=== PATIENT | female | born 1950 | race Caucasian/White ===

== ENCOUNTER → 2018-09-21 12:00 | Outpatient (CLI) | payer MEDICARE, OTHER, SELFPAY ==
--- NOTE | 2018-09-21 12:03 | DI.MG.S_ITS ---
BILATERAL DIGITAL SCREENING MAMMOGRAM 3D/2D WITH CAD: 09/21/2018 CLINICAL: Routine screening. Comparison is made to exams dated: 08/13/2015 mammogram - [facility], 02/14/2014 mammogram, and 11/01/2012 mammogram - [facility]. The tissue of both breasts is heterogeneously dense. This may lower the sensitivity of mammography. Current study was also evaluated with a Computer Aided Detection (CAD) system. There is a new 0.4 cm oval equal density asymmetry in the right breast posterior depth central to the nipple seen on the craniocaudal view only. No other significant masses, calcifications, or other findings are seen in either breast. IMPRESSION: INCOMPLETE: NEEDS ADDITIONAL IMAGING EVALUATION The new 0.4 cm oval equal density asymmetry in the right breast is indeterminate. Additional views with possible ultrasound are recommended. This exam was interpreted at Station ID: [id number]. NOTE: For mammograms, a report in lay terms will be sent to the patient. Approximately 15% of breast malignancies will not be visualized mammographically. In the management of a palpable breast mass, a negative mammogram must not discourage biopsy of a clinically suspicious lesion. Electronically Signed By: Reggie Forman M.D. aty/:09/21/2018 12:44:40 letter sent: Additional Imaging Needed ACR BI-RADS Category 0: Incomplete 3340F
== END ==
PROVIDERS: PCP Family Medicine; Visit Provider Family Medicine
DX: Z12.31 Encounter for screening mammogram for malignant neoplasm of breast (principal); M85.851 Other specified disorders of bone density and structure, right thigh; M85.852 Other specified disorders of bone density and structure, left thigh; Z78.0 Asymptomatic menopausal state
CPT/HCPCS: 77063; 77067; 77081

== ENCOUNTER → 2018-10-10 12:26 | Outpatient (CLI) | payer MEDICARE, OTHER, SELFPAY ==
--- NOTE | 2018-10-10 | DI.MG.S_ITS ---
UNILATERAL RIGHT DIGITAL DIAGNOSTIC MAMMOGRAM 3D/2D WITH ADDITIONAL VIEWS: 10/10/2018 CLINICAL: Additional evaluation requested from prior study. Comparison is made to exams dated: 09/21/2018 mammogram, 08/13/2015 mammogram - [facility], and 02/14/2014 mammogram - [facility]. The tissue of right breast is heterogeneously dense. This may lower the sensitivity of mammography. Previously identified 0.4 cm oval equal density asymmetry in the right breast posterior depth central to the nipple seen on the craniocaudal view only on comparison screening mammograms of 09/21/18 persists with additional views. Vascular calcifications are noted. A circular mole marker overlies the right breast. IMPRESSION: INCOMPLETE: NEEDS ADDITIONAL IMAGING EVALUATION Previously identified 0.4 cm oval equal density asymmetry in the right breast posterior depth central to the nipple seen on the craniocaudal view only on comparison screening mammograms of 09/21/18 persists with additional views. A targeted ultrasound is recommended for further evaluation, and will be performed immediately following this exam. This exam was interpreted at Station ID: [id number]. NOTE: For mammograms, a report in lay terms will be sent to the patient. Approximately 15% of breast malignancies will not be visualized mammographically. In the management of a palpable breast mass, a negative mammogram must not discourage biopsy of a clinically suspicious lesion. Electronically Signed By: Tan Castaneda M.D. ecl/:10/10/2018 13:21:04 ACR BI-RADS Category 0: Incomplete 3340F
--- NOTE | 2018-10-10 12:28 | DI.US.S_ITS ---
LIMITED ULTRASOUND OF RIGHT BREAST AND AXILLA: 10/10/2018 CLINICAL: Patient returns today to evaluate a focal asymmetry in the right breast. Comparison is made to exams dated: 10/10/2018 mammogram, 09/21/2018 mammogram, 08/13/2015 mammogram - [facility], 02/14/2014 mammogram, 11/01/2012 mammogram, and 10/28/2011 mammogram - [facility]. Color flow, real-time, and Doppler ultrasound of the right breast 6 o'clock, 12 o'clock, retroareolar, and axilla regions were performed. Sepulveda scale images of the real-time examination were reviewed. There is mild diffuse retroareolar ductal ectasia without underlying mass or focal ductal dilitation. There is a 0.5 x 0.2 x 0.6 cm oval circumscribed peripherally hypoechoic and centrally hyperechoic probable intramammary lymph node versus complicated cyst in the right breast at 6:00 position 1 cm from the nipple which demonstrates no vascularity on Doppler imaging. This may correlate with findings seen on comparison mammography. Targeted ultrasound along the 12:00 position demonstrates no mass or abnormality. Targeted ultrasound of the right axilla demonstrates no right axillary lymphadenopathy. IMPRESSION: PROBABLY BENIGN 0.6 x 0.5 x 0.2 cm probable intramammary lymph node versus complicated cyst in the right breast at 6:00 position 1 cm from the nipple. A follow-up mammogram and an ultrasound in 6 months is recommended to demonstrate stability. The patient is advised to monitor her breasts and to return sooner for re-evaluation should she feel anything grow or change. This exam was interpreted at Station ID: [id number]. Electronically Signed By: Tan Castaneda M.D. ecl/:10/10/2018 15:05:58 letter sent: Followup Recommended Ultrasound BI-RADS: 3 Probably benign
== END ==
PROVIDERS: PCP Family Medicine; Visit Provider Family Medicine
DX: R92.8 Other abnormal and inconclusive findings on diagnostic imaging of breast (principal); N64.89 Other specified disorders of breast; N60.41 Mammary duct ectasia of right breast
CPT/HCPCS: 76642; 77065; G0279

== ENCOUNTER → 2019-03-26 13:58 | Outpatient (CLI) | payer MEDICARE, OTHER, SELFPAY ==
--- NOTE | 2019-03-26 14:00 | DI.US.S_ITS ---
PROCEDURE: US PELVIC COMPLETE INDICATIONS: PAIN, FULLNESS POST COMPLETE HYSTERECTOMY 2015 TECHNIQUE: Real-time scanning was performed of the pelvic organs, with image documentation. Additional endovaginal scanning was necessary due to incomplete visualization of the adnexal and endometrial structures by transabdominal scanning. COMPARISON: None. FINDINGS: Transabdominal scanning: Limited scanning through the kidneys shows no hydronephrosis. No pathologic free abdominal or pelvic fluid. Endovaginal scanning: Uterus: Surgically absent. Ovaries: Reportedly surgically absent. No gross adnexal cyst or mass. Incidentally noted bladder post void residual of 206 cc. Kidneys are unremarkable bilaterally IMPRESSION: Status post hysterectomy and oophorectomy. No gross adnexal cysts or mass. Incidentally noted bladder post void residual measuring 206 cc. Recommend clinical correlation Dictated by: Osorio Holguin M.D. on 03/26/2019 at 16:34 Approved by: Osorio Holguin M.D. on 03/26/2019 at 16:35
== END ==
PROVIDERS: PCP Student in an Organized Health Care Education/Training Program; Referring Provider Obstetrics & Gynecology; Visit Provider Obstetrics & Gynecology
DX: R10.2 Pelvic and perineal pain (principal); Z90.710 Acquired absence of both cervix and uterus
CPT/HCPCS: 76830; 76856

== ENCOUNTER → 2019-04-17 12:34 | Outpatient (CLI) | payer MEDICARE, OTHER, SELFPAY ==
--- NOTE | 2019-04-17 12:39 | DI.US.S_ITS ---
LIMITED ULTRASOUND OF RIGHT BREAST: 04/17/2019 CLINICAL: Patient returns for short term follow-up of a probably benign mass in the right breast. Comparison is made to exams dated: 10/10/2018 ultrasound, 10/10/2018 mammogram, and 09/21/2018 mammogram - [facility]. Color flow and real-time ultrasound of the right breast 6 o'clock, 9 o'clock, 12 o'clock, and retroareolar regions were performed. Sepulveda scale images of the real-time examination were reviewed. There is a stable benign 0.5 cm x 0.2 cm x 0.3 cm lymph node in the right breast at 6 o'clock posterior depth 1 cm from the nipple. This correlates with mammography findings. Color flow imaging demonstrates that there is no vascularity present. There also is a benign incidentally noted 0.3 cm x 0.3 cm x 0.3 cm cyst in the right breast at 9 o'clock middle depth 2 cm from the nipple. Color flow imaging demonstrates that there is no vascularity present. IMPRESSION: BENIGN There is no sonographic evidence of malignancy. The stable 0.5 cm x 0.2 cm x 0.3 cm lymph node in the right breast at 6 o'clock posterior depth is benign. The 0.3 cm x 0.3 cm x 0.3 cm cyst in the right breast at 9 o'clock middle depth is benign. Return to annual mammogram screening schedule is recommended. Findings and recommendations were conveyed to the patient at time of exam. This exam was interpreted at Station ID: [id number]. Electronically Signed By: Lizeth miles/:04/17/2019 15:02:50 copy to: PHOEBE MATOS letter sent: Normal Exam Ultrasound BI-RADS: 2 Benign
--- NOTE | 2019-04-17 12:39 | DI.MG.S_ITS ---
UNILATERAL RIGHT DIGITAL DIAGNOSTIC MAMMOGRAM 3D/2D SHORT-TERM FOLLOW-UP: 04/17/2019 CLINICAL: Short follow up. Comparison is made to exams dated: 10/10/2018 mammogram, 09/21/2018 mammogram, and 08/13/2015 mammogram - [facility]. The tissue of right breast is heterogeneously dense. This may lower the sensitivity of mammography. There is a stable 3 mm oval equal density asymmetry with a circumscribed margin in the right breast central to the nipple posterior depth. This is seen in additional views. There also is a 5 mm round equal density asymmetry with a circumscribed margin in the right breast central to the nipple middle depth. This is more prominent compared to previous. No other significant masses or calcifications are seen in the breast. IMPRESSION: INCOMPLETE: NEEDS ADDITIONAL IMAGING EVALUATION The stable 3 mm oval equal density asymmetry in the right breast central to the nipple posterior depth is probably benign. Confirmation with ultrasound is recommended. The 5 mm round equal density asymmetry in the right breast central to the nipple middle depth is indeterminate. An ultrasound is recommended for further evaluation. This was performed immediately following this exam. This exam was interpreted at Station ID: [id number]. NOTE: For mammograms, a report in lay terms will be sent to the patient. Approximately 15% of breast malignancies will not be visualized mammographically. In the management of a palpable breast mass, a negative mammogram must not discourage biopsy of a clinically suspicious lesion. Electronically Signed By: Lizeth miles/:04/17/2019 13:46:31 copy to: PHOEBE OBRIEN BI-RADS Category 0: Incomplete 3340F
== END ==
PROVIDERS: PCP Student in an Organized Health Care Education/Training Program; Referring Provider Student in an Organized Health Care Education/Training Program; Visit Provider Family Medicine
DX: R92.8 Other abnormal and inconclusive findings on diagnostic imaging of breast (principal); N64.89 Other specified disorders of breast; N60.01 Solitary cyst of right breast
CPT/HCPCS: 76642; 77065; G0279

== ENCOUNTER → 2019-05-23 13:50 | Outpatient (CLI) | payer MEDICARE, OTHER, SELFPAY ==
[2019-05-23 15:33] LABS: BUN Creatinine Ratio 23.1 (6-22); Blood Urea Nitrogen 18 mg/dL (7-17); Estimated Glomerular Filt Rate > 60.0 mL/min (>60)
[2019-05-23 16:00] LABS: TSH w/ Reflex to FT4 1.11 uIU/mL (0.47-4.68)
[2019-05-23 16:20] LABS: Vitamin B12 823 pg/mL (239-931)
[2019-05-23 17:14] LABS: Vitamin D 25 Hydroxy (D3) 104 ng/mL (30.0-100.0)
== END ==
PROVIDERS: PCP Student in an Organized Health Care Education/Training Program; Referring Provider Student in an Organized Health Care Education/Training Program; Visit Provider Student in an Organized Health Care Education/Training Program
DX: G62.9 Polyneuropathy, unspecified (principal); Z79.899 Other long term (current) drug therapy; E55.9 Vitamin D deficiency, unspecified; M85.80 Other specified disorders of bone density and structure, unspecified site
CPT/HCPCS: 36415; 82306; 82565; 82607; 84443; 84520

== ENCOUNTER → 2019-05-25 12:35 | Outpatient (CLI) | payer MEDICARE, OTHER, SELFPAY ==
--- NOTE | 2019-05-25 12:37 | DI.CT.S_ITS ---
PROCEDURE: CT LUMBAR SPINE WO CON INDICATIONS: Complex pain syndrome TECHNIQUE: Noncontrast 3 mm thick sections acquired from the T12 level to the sacrum. Sagittal and coronal reformats were constructed. For radiation dose reduction, the following was used: automated exposure control. COMPARISON: [facility], CT, CT ABDOMEN PELVIS WO CON, 05/25/2019, 12:35. FINDINGS: Image quality: Excellent. Bones: There is normal bony alignment. No acute vertebral body compression fractures. No suspicious lytic or blastic bony lesions. No pars defects. There is mild to moderate disc space narrowing at L4-5 and L5-S1. Mild disc bulges are present at L3-4, L4-5 and L5-S1. Disc bulge at L5-S1 is somewhat asymmetric with slight compromise of the left lateral recess. There is no spinal stenosis. Mild to moderate left and minimal right foraminal narrowing at L4-5, mild to moderate bilateral at L5-S1. Facet hypertrophy is present. Soft tissues: No retroperitoneal masses or hematomas. Visualized aorta is normal in caliber. IMPRESSION: 1. Early degenerative changes most notable at L5-S1 as above. Dictated by: Joy Woodall M.D. on 05/25/2019 at 15:41 Approved by: Joy Woodall M.D. on 05/25/2019 at 15:48
--- NOTE | 2019-05-25 12:37 | DI.CT.S_ITS ---
PROCEDURE: CT ABDOMEN PELVIS WO CON INDICATIONS: Complex pain syndrome TECHNIQUE: Noncontrast 5 mm thick sections acquired from the diaphragms to the symphysis. 5 mm coronal and sagittal reformats were then performed. For radiation dose reduction, the following was used: automated exposure control, adjustment of mA and/or kV according to patient size. COMPARISON: [facility], US, US PELVIC COMPLETE, 03/26/2019, 14:36. [facility], RG, US ABDOMEN, 03/30/2017, 14:33. [facility], CT, PE STUDY (CTA CHEST), 03/15/2017, 17:04. FINDINGS: Image quality: Excellent. ABDOMEN: Lung bases: Lung bases are clear. Heart size is normal. Solid organs: Liver is normal in size. Gallbladder appears partially contracted. Pancreas is normal in contours. Spleen is normal in size. No adrenal nodules. Kidneys are normal in size, without hydronephrosis or nephrolithiasis. There is a next thick cyst measuring 3 cm and water in radiodensity noted at the lateral border of the middle third of the right mid kidney Peritoneum and bowel: Unenhanced bowel loops demonstrate normal wall thickness and caliber. No free fluid or air. Nodes and vessels: No retroperitoneal or mesenteric adenopathy by size criteria. Aorta and inferior vena cava are normal in caliber. Miscellaneous: No ventral hernias. PELVIS: Genitourinary: Bladder wall thickness is normal. Hysterectomy, reported bilateral oophorectomy. Miscellaneous: No inguinal hernias or adenopathy. Bones: No suspicious bony lesions. No vertebral body compression fractures. IMPRESSION: No infection or neoplasm found. Prior hysterectomy. Incidental note is made of an exophytic 3 cm cyst projecting from the lateral border of the right mid kidney without adjacent inflammation. A cyst of this size and appearance generally does not produce symptomatology. Dictated by: Sriram Dawson M.D. on 05/25/2019 at 14:59 Approved by: Sriram Dawson M.D. on 05/25/2019 at 15:01
== END ==
PROVIDERS: PCP Student in an Organized Health Care Education/Training Program; Referring Provider Student in an Organized Health Care Education/Training Program; Visit Provider Student in an Organized Health Care Education/Training Program
DX: R10.2 Pelvic and perineal pain (principal); R10.9 Unspecified abdominal pain; M54.5 Low back pain; G62.9 Polyneuropathy, unspecified; M47.817 Spondylosis without myelopathy or radiculopathy, lumbosacral region; N28.1 Cyst of kidney, acquired; Z90.710 Acquired absence of both cervix and uterus
CPT/HCPCS: 72131; 74176

== ENCOUNTER → 2019-10-30 12:27 | Outpatient (CLI) | payer MEDICARE, OTHER, SELFPAY ==
[2019-10-30 12:33] LABS: Bacteria Urine None Seen; RBC Urine None Seen (0-5/HPF); WBC Urine None Seen (0-5/HPF)
[2019-10-30 13:38] LABS: Appearance Urine UA CLEAR; Bilirubin Urine UA NEGATIVE (NEGATIVE); Color Urine UA YELLOW; Glucose Urine UA NEGATIVE (Negative); Ketones Urine UA NEGATIVE (NEGATIVE); Leukocyte Esterase Urine UA NEGATIVE (NEGATIVE); Nitrite Urine UA NEGATIVE (Negative); Occult Blood Urine UA NEGATIVE (Negative); Protein Urine UA NEGATIVE (Negative); Specific Gravity Urine UA <=1.005 (1.000-1.035); Urobilinogen Urine UA 0.2 E.U./dL (0.2)
[2019-10-30 13:41] LABS: pH Urine UA 6.5 (4.5-8.0)
[2019-10-30 13:43] LABS: Culture Indicated Urine Cult Not Indicated; Urine Comments Microscopic Normal
== END ==
PROVIDERS: PCP Student in an Organized Health Care Education/Training Program; Referring Provider Student in an Organized Health Care Education/Training Program; Visit Provider Student in an Organized Health Care Education/Training Program
DX: R30.0 Dysuria (principal)
CPT/HCPCS: 81001

== ENCOUNTER → 2019-12-10 13:44 | Outpatient (CLI) | payer MEDICARE, OTHER, SELFPAY ==
--- NOTE | 2019-12-25 08:07 | PM.CARDMON.1 ---
[employer]chand[employer] Presentation Associate Report Referral & Results Date Patient Seen: 12/10/19 Requesting provider: Harris Pedraza Indication: Palpitations Duration of monitoring (days): 4 Diary information: There were 6 patient triggered events and 6 patient diary entries. All 12 these events were associated with sinus rhythm only Data: Minimum heart rate identified was 56 beats per minute at 06:12 on 12/11/2019 Maximum heart rate was 134 beats per minute at 12:40 on 12/13/2019 Less than 1% of identified beats or either ventricular supraventricular ectopic in origin No other significant dysrhythmias identified Impression: Normal conveyor monitor. No etiology for sense of palpitations identified on this study
== END ==
PROVIDERS: PCP Student in an Organized Health Care Education/Training Program; Referring Provider Student in an Organized Health Care Education/Training Program; Visit Provider Student in an Organized Health Care Education/Training Program
DX: R00.2 Palpitations (principal)
CPT/HCPCS: 0296T; 0298T

== ENCOUNTER → 2020-07-16 14:33 | Outpatient (CLI) | payer MEDICARE, OTHER, SELFPAY ==
--- NOTE | 2020-07-16 14:35 | DI.MG.S_ITS ---
BILATERAL DIGITAL SCREENING MAMMOGRAM 3D/2D WITH CAD: 07/16/2020 CLINICAL: Routine screening. Comparison is made to exams dated: 04/17/2019 mammogram, 10/10/2018 mammogram, 09/21/2018 mammogram, and 08/13/2015 mammogram - [facility]. The tissue of both breasts is heterogeneously dense. This may lower the sensitivity of mammography. Current study was also evaluated with a Computer Aided Detection (CAD) system. There is a cluster of oval low density masses with an indistinct and circumscribed margin in the right breast central to the nipple posterior depth. No other significant masses, calcifications, or other findings are seen in either breast. IMPRESSION: INCOMPLETE: NEEDS ADDITIONAL IMAGING EVALUATION The cluster of oval low density masses in the right breast resembles clustered cysts and is indeterminate. Additional views and an ultrasound are recommended. This exam was interpreted at Station ID: [id number]. NOTE: For mammograms, a report in lay terms will be sent to the patient. Approximately 15% of breast malignancies will not be visualized mammographically. In the management of a palpable breast mass, a negative mammogram must not discourage biopsy of a clinically suspicious lesion. Electronically Signed By: Juan Luis Zavala M.D. ddsuzette/:07/16/2020 16:00:56 copy to: PHOEBE MATOS letter sent: Additional Imaging Needed ACR BI-RADS Category 0: Incomplete 3340F
[2020-07-18 13:40] LABS: Fecal Immunochemical Test Negative (Negative)
== END ==
PROVIDERS: PCP Student in an Organized Health Care Education/Training Program; Referring Provider Student in an Organized Health Care Education/Training Program; Visit Provider Student in an Organized Health Care Education/Training Program
DX: Z12.31 Encounter for screening mammogram for malignant neoplasm of breast (principal); M85.88 Other specified disorders of bone density and structure, other site; Z78.0 Asymptomatic menopausal state; Z12.11 Encounter for screening for malignant neoplasm of colon; Z90.722 Acquired absence of ovaries, bilateral
CPT/HCPCS: 77063; 77067; 77080; 82274

== ENCOUNTER → 2020-08-06 13:26 | Outpatient (CLI) | payer MEDICARE, OTHER, SELFPAY ==
--- NOTE | 2020-08-06 | DI.MG.S_ITS ---
UNILATERAL RIGHT DIGITAL DIAGNOSTIC MAMMOGRAM 3D/2D WITH ADDITIONAL VIEWS: 08/06/2020 CLINICAL: Additional evaluation requested from prior study. Comparison is made to exams dated: 07/16/2020 mammogram, 04/17/2019 mammogram, 10/10/2018 mammogram, and 09/21/2018 mammogram - [facility]. The tissue of right breast is heterogeneously dense. This may lower the sensitivity of mammography. There is a cluster of oval low density masses with indistinct and circumscribed margins in the right breast central to the nipple posterior depth. These range in size from 0.4 - 0.6 cm in dimension. No other significant masses or calcifications are seen in the breast. IMPRESSION: INCOMPLETE: NEEDS ADDITIONAL IMAGING EVALUATION The cluster of oval low density masses in the right breast is indeterminate. An ultrasound is recommended. Ultrasound will be performed immediately following the current exam. This exam was interpreted at Station ID: [id number]. NOTE: For mammograms, a report in lay terms will be sent to the patient. Approximately 15% of breast malignancies will not be visualized mammographically. In the management of a palpable breast mass, a negative mammogram must not discourage biopsy of a clinically suspicious lesion. Electronically Signed By: Juan Luis Zavala M.D. ddsuzette/:08/06/2020 14:06:45 copy to: PHOEBE OBRIEN BI-RADS Category 0: Incomplete 3340F
--- NOTE | 2020-08-06 13:27 | DI.US.S_ITS ---
LIMITED ULTRASOUND OF RIGHT BREAST: 08/06/2020 CLINICAL: Patient returns today to evaluate a densities in the right breast. Comparison is made to exams dated: 08/06/2020 mammogram, 07/16/2020 mammogram, 04/17/2019 ultrasound, 04/17/2019 mammogram, 10/10/2018 ultrasound, and 10/10/2018 mammogram - [facility]. Color flow and real-time ultrasound of the right breast 3 o'clock, 9 o'clock, and retroareolar regions were performed on the areas of interest. There is a 0.4 cm x 0.4 cm oval cyst in the right breast at 9 o'clock middle depth 2 cm from the nipple. This oval cyst is hypoechoic with posterior acoustic enhancement. This may correlate with mammography findings although it appears slightly superficial. Color flow imaging demonstrates that there is no vascularity present. There also is a small 0.4 x 0.1 cm oval cyst in the right breast at 3 o'clock posterior depth. This oval cyst is hypoechoic with evaluation limited due to its small size. This may possible correlate with mammography findings. IMPRESSION: PROBABLY BENIGN The 0.4 cm x 0.4 cm oval cyst in the right breast at 9 o'clock middle depth appears benign and may correlate with one of the mammographic findings. The 0.4 cm oval cyst in the right breast at 3 o'clock posterior depth appears benign. No discrete retroareolar cystic or solid mass identified to correlate with the remaining retroareolar findings on mammogram. A follow-up mammogram and possible ultrasound in 6 months are recommended to demonstrate stability. This exam was interpreted at Station ID: [id number]. Electronically Signed By: Juan Luis banks/:08/06/2020 15:16:01 copy to: PHOEBE MATOS letter sent: Followup Recommended Ultrasound BI-RADS: 3 Probably benign
== END ==
PROVIDERS: PCP Student in an Organized Health Care Education/Training Program; Referring Provider Student in an Organized Health Care Education/Training Program; Visit Provider Student in an Organized Health Care Education/Training Program
DX: R92.8 Other abnormal and inconclusive findings on diagnostic imaging of breast (principal); N60.01 Solitary cyst of right breast
CPT/HCPCS: 76642; 77065; G0279

== ENCOUNTER → 2021-04-06 12:50 | Outpatient (CLI) | payer MEDICARE, OTHER, SELFPAY ==
--- NOTE | 2021-04-06 12:53 | DI.US.S_ITS ---
LIMITED ULTRASOUND OF RIGHT BREAST: 04/06/2021 CLINICAL: 6 month follow-up of cysts. Comparison is made to exams dated: 04/06/2021 mammogram, 08/06/2020 ultrasound, 08/06/2020 mammogram, 07/16/2020 mammogram, and 04/17/2019 [facility]. Ultrasound of the right breast 3 o'clock and 9 o'clock regions was performed. Sepulveda scale images of the real-time examination were reviewed. No significant abnormalities were seen sonographically in the right breast. Previously documented cysts on mammogram and ultrasound have resolved by ultrasound. No suspicious ultrasound findings. IMPRESSION: NEGATIVE There is no sonographic evidence of malignancy. Findings previously thought to correspond to cysts in the right breast on mammogram are less prominent. Return to annual mammogram screening schedule is recommended. Findings and recommendations were conveyed to the patient at time of exam. This exam was interpreted at Station ID: [id number]. Electronically Signed By: Lizeth miles/:04/06/2021 13:58:09 copy to: PHOEBE MATOS letter sent: Normal Exam Ultrasound BI-RADS: 1 Negative
--- NOTE | 2021-04-06 12:53 | DI.MG.S_ITS ---
UNILATERAL RIGHT DIGITAL DIAGNOSTIC MAMMOGRAM 3D/2D SHORT-TERM FOLLOW-UP: 04/06/2021 CLINICAL: Short term follow up of the right breast. Comparison is made to exams dated: 08/06/2020 mammogram, 07/16/2020 mammogram, and 04/17/2019 mammogram - [facility]. The tissue of right breast is heterogeneously dense. This may lower the sensitivity of mammography. There are a few oval cysts in the right breast central to the nipple posterior depth. These are less prominent and decreased in size. No other significant masses or calcifications are seen in the breast. Mammogram is otherwise stable. IMPRESSION: INCOMPLETE: NEEDS ADDITIONAL IMAGING EVALUATION The oval cysts in the right breast are less prominent, slightly smaller in size. An ultrasound is recommended to document stability or decreased size. This was performed immediately following this exam. This exam was interpreted at Station ID: [id number]. NOTE: For mammograms, a report in lay terms will be sent to the patient. Approximately 15% of breast malignancies will not be visualized mammographically. In the management of a palpable breast mass, a negative mammogram must not discourage biopsy of a clinically suspicious lesion. Electronically Signed By: Lizeth miles/:04/06/2021 13:14:18 copy to: PHOEBE OBRIEN BI-RADS Category 0: Incomplete 3340F
== END ==
PROVIDERS: PCP Student in an Organized Health Care Education/Training Program; Referring Provider Student in an Organized Health Care Education/Training Program; Visit Provider Student in an Organized Health Care Education/Training Program
DX: R92.8 Other abnormal and inconclusive findings on diagnostic imaging of breast (principal); N60.01 Solitary cyst of right breast
CPT/HCPCS: 76642; 77065; G0279

== ENCOUNTER → 2021-10-20 12:25 | Outpatient (CLI) | payer MEDICARE, OTHER, SELFPAY ==
--- NOTE | 2021-10-20 | DI.MG.S_ITS ---
BILATERAL DIGITAL SCREENING MAMMOGRAM 3D/2D WITH CAD: 10/20/2021 CLINICAL: Routine screening. Comparison is made to exams dated: 07/16/2020 mammogram, 09/21/2018 mammogram, 04/06/2021 mammogram, 08/06/2020 mammogram, 04/17/2019 mammogram, and 10/10/2018 mammogram - [facility]. Both breasts are heterogeneously dense, which may obscure small masses (category c / 51-75% glandular tissue). Current study was also evaluated with a Computer Aided Detection (CAD) system. No significant masses, calcifications, or other findings are seen in either breast. There has been no significant interval change. IMPRESSION: NEGATIVE There is no mammographic evidence of malignancy. A 1 year screening mammogram is recommended. Based on the Tyrer Cuzick model (a risk assessment model) the patient's lifetime risk is 7.6% and her 10 year risk is 4.8%. According to the ACR, ACS, and NCCN guidelines, an annual breast MRI exam along with mammogram is recommended if the patient's lifetime risk is 20% or greater. This exam was interpreted at Station ID: [id number]. NOTE: For mammograms, a report in lay terms will be sent to the patient. Approximately 15% of breast malignancies will not be visualized mammographically. In the management of a palpable breast mass, a negative mammogram must not discourage biopsy of a clinically suspicious lesion. Electronically Signed By: Berny monaco/thompson:10/20/2021 16:31:29 letter sent: Normal Exam ACR BI-RADS Category 1: Negative [id number]
== END ==
PROVIDERS: PCP Student in an Organized Health Care Education/Training Program; Referring Provider Student in an Organized Health Care Education/Training Program; Visit Provider Student in an Organized Health Care Education/Training Program
DX: Z12.31 Encounter for screening mammogram for malignant neoplasm of breast (principal)
CPT/HCPCS: 77063; 77067

== ENCOUNTER → 2021-11-07 12:38 | Outpatient (CLI) | payer MEDICARE, OTHER, SELFPAY ==
--- NOTE | 2021-11-07 12:40 | DI.MRI.S_ITS ---
PROCEDURE: MR ANKLE RT WO CON INDICATIONS: Peroneal tendinitis/pain in right foot TECHNIQUE: Noncontrast sagittal T1 spin echo and T2 fast spin echo with fat saturation, axial proton density fast spin echo and T2 fast spin echo with fat saturation, coronal T1 spin echo and T2 fast spin echo with fat saturation through the ankle/hindfoot. COMPARISON: [facility], MR, ANKLE WITHOUT CONTRAST, 06/11/2016, 9:59. FINDINGS: Image quality: Excellent. Bones and joints: No bone marrow contusions or fractures. Small ossicle is noted adjacent to lateral aspect of calcaneocuboid joint. Well-defined plantar calcaneal enthesophyte is seen. Mild midfoot and hindfoot joint osteoarthritic changes are noted with joint space narrowing and mild subchondral sclerosis. No hindfoot coalitions. No osteochondral injuries of the talar dome. No pathologic joint effusions. Medial structures: The posterior tibialis, flexor digitorum longus, and flexor hallucis longus tendons are intact. The posterior tibial neurovascular bundle appears normal within the tarsal tunnel, without extrinsic mass effect. The deep layer (anterior and posterior tibiotalar ligaments) and superficial layer (tibionavicular, tibiospring, and tibiocalcaneal ligaments) of the deltoid ligament appear normal. The spring ligament components (superomedial calcaneonavicular, medioplantar oblique calcaneonavicular, and inferoplantar longitudinal ligaments) are intact. Lateral structures: The anterior talofibular, calcaneofibular, and posterior talofibular ligaments appear mildly thickened. More superiorly, the anterior and posterior tibiofibular ligaments appear intact, as is the intermalleolar ligament. The tibiofibular syndesmosis is normal in width at 2 mm or less. The peroneus longus and brevis tendons are thickened with small amount of adjacent fluid at the level of calcaneocuboid joint is seen. Adjacent bony peroneal tubercle and retrotrochlear prominence are normal in size. The sinus tarsi demonstrates normal fatty signal, without edema, fibrosis, or cyst formation. Visualized sinus tarsi components (cervical ligament, interosseous talocalcaneal ligament, roots of the inferior extensor retinaculum) appear normal. The calcaneonavicular and calcaneocuboid components of the bifurcate ligament appear intact. The dorsal calcaneocuboid ligament appears intact. Anterior structures: The tibialis anterior, extensor hallucis longus, and extensor digitorum longus tendons appear intact. The dorsal talonavicular ligament appears intact. Posterior and plantar structures: Achilles tendon is intact. Mildly thickened plantar fascia at its calcaneal insertion is noted with mild adjacent edema. No abductor digiti quinti muscle atrophy to suggest Nolan neuropathy. IMPRESSION: 1. Mild midfoot and hindfoot joint osteoarthritis. No fracture or dislocation. Likely small ossicle adjacent to lateral aspect of calcaneocuboid joint. Well-defined plantar calcaneal enthesophyte. No osteochondral injuries of talar dome. 2. Medial ankle tendons and ligaments are intact. Extensor tendons are intact. 3. Tendinosis and low-grade tenosynovitis involving peroneus longus and brevis tendons at the level of calcaneocuboid joint posterior lateral to the above-mentioned ossicle. Suggestion of very low-grade lateral ankle ligament sprain. 4. Mildly thickened plantar fascia concerning for low-grade plantar fasciitis. Achilles tendon is intact. Dictated by: Reed Kta M.D. on 11/09/2021 at 10:12 Approved by: Reed Kat M.D. on 11/09/2021 at 10:17
--- NOTE | 2021-11-07 12:41 | DI.MRI.S_ITS ---
PROCEDURE: MR FOOT RT WO CON INDICATIONS: Peroneal tendinitis/pain in right foot TECHNIQUE: Noncontrast sagittal T1 spin echo and T2 fast spin echo with fat saturation, long-axis T1 spin echo and T2 fast spin echo with fat saturation, short-axis T1 spin echo and T2 fast spin echo with fat saturation through the forefoot. COMPARISON: None. FINDINGS: Image quality: Excellent. Bones and joints: No bone marrow contusions or metatarsal stress fractures. Midfoot and forefoot joint osteoarthritic changes are seen most prominent at 1st MTP joint with joint space narrowing, subchondral sclerosis and marginal osteophyte formation. Nonspecific subcortical cystic changes are noted involving medial aspect of 1st metatarsal head. No intraosseous lesions. Soft tissues: The visualized plantar foot muscles demonstrate normal signal and bulk. Visualized flexor and extensor tendons appear intact, without tenosynovitis. The distal insertions of the peroneus brevis and longus tendons appear thickened with adjacent edema suggestive of tendinosis. The principal Lisfranc ligament appears intact. No soft tissue ganglion cysts or bursal fluid collections. Sagittal images demonstrate no evidence for plantar plate tears. IMPRESSION: 1. Distal peroneus brevis and longus tendinosis near their insertions and at the level of calcaneocuboid joint. No full-thickness tendon rupture. Extensor and flexor tendons are intact. 2. [id number] midfoot and forefoot joint osteoarthritis more prominent at 1st MTP joint as above. No fracture or dislocation. No metatarsal stress fractures. Dictated by: Reed Kat M.D. on 11/09/2021 at 10:17 Approved by: Reed Kat M.D. on 11/09/2021 at 10:35
--- NOTE | 2021-11-07 12:42 | DI.MRI.S_ITS ---
PROCEDURE: MR LOWER LEG RT WO CON INDICATIONS: Peroneal tendinitis/pain in right foot TECHNIQUE: Noncontrast coronal and sagittal T1 spin echo and STIR; axial T1 spin echo and T2 fast spin echo with fat saturation through the right lower leg. COMPARISON: None. FINDINGS: Image quality: Excellent. Bones: There is no marrow edema. No fracture or dislocation. Well-circumscribed mixed T1 and T2 hyperintense structure within intramed medullary space of proximal tibial shaft and measures up to 1.2 x 1.5 x 2.1 cm in size most consistent with benign enchondroma. No cortical erosion or destruction. No other area of marrow signal abnormality. Soft tissues: The scanned muscles demonstrate normal overall bulk and internal signal. Subcutaneous tissues appear normal as well. No soft tissue masses are present. IMPRESSION: 1. No calf muscle signal abnormality is seen. No soft tissue mass or fluid collection. 2. 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 No marrow edema. No fracture or dislocation. Dictated by: Reed Kat M.D. on 11/09/2021 at 10:01 Approved by: Reed Kat M.D. on 11/09/2021 at 10:12
== END ==
PROVIDERS: PCP Student in an Organized Health Care Education/Training Program; Referring Provider Podiatrist; Visit Provider Podiatrist
DX: M76.71 Peroneal tendinitis, right leg (principal); M19.071 Primary osteoarthritis, right ankle and foot; M65.871 Other synovitis and tenosynovitis, right ankle and foot; M77.31 Calcaneal spur, right foot; M79.671 Pain in right foot; R26.2 Difficulty in walking, not elsewhere classified
CPT/HCPCS: 73718; 73721

== ENCOUNTER → 2021-12-28 14:13 | Outpatient (CLI) | payer MEDICARE, OTHER, SELFPAY ==
[2021-12-29 13:34] LABS: Fecal Immunochemical Test Negative (Negative)
== END ==
PROVIDERS: PCP Student in an Organized Health Care Education/Training Program; Referring Provider Student in an Organized Health Care Education/Training Program; Visit Provider Student in an Organized Health Care Education/Training Program
DX: Z12.11 Encounter for screening for malignant neoplasm of colon (principal)
CPT/HCPCS: 82274

== ENCOUNTER → 2022-06-24 12:37 | Outpatient (CLI) | payer MEDICARE, OTHER, SELFPAY ==
--- NOTE | 2022-06-24 12:38 | DI.RAD.S_ITS ---
PROCEDURE: FL BARIUM SWALLOW INDICATIONS: Swallowing problem COMPARISON: [facility], RF, UPPER GI AIR CONTRAST WITH KUB, 03/28/2014, 10:00. [facility], RG, US ABDOMEN, 03/30/2017, 14:33. FINDINGS: There are postsurgical changes related to Roselia fundoplication. Function: There is mild esophageal dysmotility. No elicited gastroesophageal reflux. There is normal transit of a calibrated barium tablet through the esophagus into the stomach. Morphology: Air-contrast images demonstrate normal mucosal morphology. Single contrast views show no esophageal strictures, extrinsic mass effects, or diverticula. Limited images of the stomach demonstrate normal appearance. IMPRESSION: 1. Postsurgical changes related to Roselia fundoplication. 2. Small hiatal hernia. 3. No esophageal obstruction. 4. Mild esophageal dysmotility. Dictated by: Anna Weinstein M.D. on 06/24/2022 at 14:07 Approved by: Anna Weinstein M.D. on 06/24/2022 at 14:10
== END ==
PROVIDERS: PCP Student in an Organized Health Care Education/Training Program; Referring Provider Student in an Organized Health Care Education/Training Program; Visit Provider Student in an Organized Health Care Education/Training Program
DX: K44.9 Diaphragmatic hernia without obstruction or gangrene (principal); K22.4 Dyskinesia of esophagus
CPT/HCPCS: 74220

== ENCOUNTER → 2022-07-22 13:37 | Outpatient (CLI) | payer MEDICARE, OTHER, SELFPAY ==
[2022-07-22 14:22] LABS: Add Manual Diff / Slide Review NO; Basophils Absolute Auto 100 /uL (0-100); Basophils Percent Auto 1.2 % (0-2); Eosinophils Absolute Auto 100 /uL (0-450); Eosinophils Percent Auto 2.5 % (2-4); Hematocrit 43.9 % (36-46); Hemoglobin 15.1 g/dL (12.0-16.0); Lymphocytes Absolute Auto 1400 /uL (1100-4500); Lymphocytes Percent Auto 25.8 % (25-40); Mean Corpuscular HGB Conc 34.4 % (30-36); Mean Corpuscular Hemoglobin 31.7 PG (26-34); Mean Corpuscular Volume 92.3 fL (80-100); Monocytes Absolute Auto 400 /uL (0-900); Neutrophils Absolute Auto 3400 /uL (1500-7000); Neutrophils Percent Auto 62.5 % (50-75); Platelet Count 243 X10^3/uL (150-400); Red Blood Cell Count 4.75 X10^6/uL (4.0-5.2); White Blood Cell Count 5.5 X10^3/uL (4.5-11.0)
[2022-07-22 14:46] LABS: Alanine Aminotransferase 25 IU/L (<35); Albumin 4.7 g/dL (3.5-5.0); Albumin Globulin Ratio 1.5 (1.0-2.8); Alkaline Phosphatase 97 U/L (38-126); Aspartate Aminotransferase 24 IU/L (14-36); BUN Creatinine Ratio 14.8 (6-22); Bilirubin Total 0.3 mg/dL (0.2-1.3); Blood Urea Nitrogen 12 mg/dL (7-17); Calcium 9.3 mg/dL (8.4-10.2); Carbon Dioxide 30 mmol/L (22-32); Chloride 103 mmol/L (98-107); Estimated Glomerular Filt Rate > 60 mL/min (>60); Globulin 3.2 g/dL (1.7-4.1); Glucose 127 mg/dL (80-110); HEMOLYSIS < 15 (0-50); Potassium 4.4 mmol/L (3.4-5.1); Sodium 140 mmol/L (137-145); Total Protein 7.9 g/dL (6.3-8.2)
[2022-07-22 14:56] LABS: Erythrocyte Sedimentation Rate 14 MM/HR (0-20)
[2022-07-22 15:13] LABS: TSH w/ Reflex to FT4 0.73 uIU/mL (0.47-4.68)
== END ==
PROVIDERS: PCP Pediatrics; Referring Provider Pediatrics; Visit Provider Pediatrics
DX: J04.0 Acute laryngitis (principal); R13.10 Dysphagia, unspecified; K21.9 Gastro-esophageal reflux disease without esophagitis; R49.0 Dysphonia
CPT/HCPCS: 36415; 80053; 84443; 85025; 85651

== ENCOUNTER → 2022-07-23 12:11 | Outpatient (CLI) | payer MEDICARE, OTHER, SELFPAY ==
[2022-07-26 17:06] LABS: Interpretation Negative (Negative)
== END ==
PROVIDERS: PCP Pediatrics; Referring Provider Pediatrics; Visit Provider Pediatrics
DX: R49.0 Dysphonia (principal); J04.0 Acute laryngitis; K21.9 Gastro-esophageal reflux disease without esophagitis; R13.10 Dysphagia, unspecified
CPT/HCPCS: 83013

== ENCOUNTER → 2022-10-18 14:43 | Outpatient (CLI) | payer MEDICARE, OTHER, SELFPAY ==
[2022-10-18 15:35] LABS: Rheumatoid Factor < 8.6 IU/mL (<12.0)
[2022-10-18 15:44] LABS: Erythrocyte Sedimentation Rate 8 MM/HR (0-20)
[2022-10-20 19:56] LABS: SS A Ro Sjogrens Antibody 0.6 AI (0.0-0.9); SS B La Sjogrens Antibody < 0.2 AI (0.0-0.9)
[2022-10-21 22:11] LABS: ANA Screen, IFA Positive (.)
== END ==
PROVIDERS: PCP Pediatrics; Referring Provider Pediatrics; Visit Provider Pediatrics
DX: H04.123 Dry eye syndrome of bilateral lacrimal glands (principal); K02.9 Dental caries, unspecified; K21.9 Gastro-esophageal reflux disease without esophagitis; R13.10 Dysphagia, unspecified; R49.0 Dysphonia; R68.2 Dry mouth, unspecified
CPT/HCPCS: 36415; 85651; 86038; 86235; 86430

== ENCOUNTER → 2023-03-08 12:40 | Outpatient (CLI) | payer MEDICARE, OTHER, SELFPAY ==
--- NOTE | 2023-03-08 12:44 | DI.MG.S_ITS ---
BILATERAL DIGITAL SCREENING MAMMOGRAM 3D/2D WITH CAD: 03/08/2023 CLINICAL: Routine screening. Comparison is made to exams dated: 10/20/2021 mammogram, 07/16/2020 mammogram, and 09/21/2018 mammogram - [facility]. Both breasts are heterogeneously dense, which may obscure small masses (category c / 51-75% glandular tissue). Current study was also evaluated with a Computer Aided Detection (CAD) system. No significant masses, calcifications, or other findings are seen in either breast. There has been no significant interval change. IMPRESSION: NEGATIVE There is no mammographic evidence of malignancy. A 1 year screening mammogram is recommended. Based on the Tyrer Cuzick model (a risk assessment model) the patient's lifetime risk is 6.8% and her 10 year risk is 5.1%. According to the ACR, ACS, and NCCN guidelines, an annual breast MRI exam along with mammogram is recommended if the patient's lifetime risk is 20% or greater. This exam was interpreted at Station ID: [id number]. NOTE: For mammograms, a report in lay terms will be sent to the patient. Approximately 15% of breast malignancies will not be visualized mammographically. In the management of a palpable breast mass, a negative mammogram must not discourage biopsy of a clinically suspicious lesion. Electronically Signed By: Susana Singh M.D., PH.D eb/thompson:03/08/2023 16:04:13 letter sent: Normal Exam ACR BI-RADS Category 1: Negative [id number]
--- NOTE | 2023-03-08 12:44 | DI.RAD.S_ITS ---
Bone Density Report Name: NITZA MORAN Age: 73 Sex: Female Ethnicity: White Date of : 1950 Indication: osteopenia; Referring Provider: KANA MONREAL Study: Bone densitometry was performed. Exam Date: March 08, 2023 Accession number: [id number] Bone Density: Region BMD T-score Z-score Classification AP Spine(L1-L4) 0.779 -2.4 -0.2 Osteopenia Femoral Neck (Left) 0.687 -1.5 0.5 Osteopenia Total Hip (Left) 0.897 -0.4 1.3 Normal Femoral Neck (Right) 0.636 -1.9 0.0 Osteopenia Total Hip (Right) 0.802 -1.1 0.5 Osteopenia Total Hip Mean 0.850 -0.8 0.9 Normal World Health Organization criteria for BMD impression classify patients as: Normal (T-score at or above -1.0), Osteopenia (T-score between -1.0 and -2.5), or Osteoporosis (T-score at or below -2.5). 10-year Fracture Risk(1): Major Osteoporotic Fracture 11% Hip Fracture 2.1% Reported Risk Factors: [place] (), Neck BMD=0.636, BMI=32.1 (1) FRAX(R) Version 3.08. Fracture probability calculated for an untreated patient. Fracture probability may be lower if the patient has received treatment. Previous Exams: -- Region Exam Age BMD T-score BMD Change BMD Change Date g/cm2 vs Baseline vs Previous -- AP Spine (L1-L4) 03/08/2023 73 0.779 -2.4 -0.067 (-7.9%)# -0.067 (-7.9%)# 07/16/2020 70 0.845 -1.8 Total Hip(Left) 03/08/2023 73 0.897 -0.4 -0.010 (-1.1%)# -0.010 (-1.1%)# 07/16/2020 70 0.907 -0.3 Total Hip(Right) 03/08/2023 73 0.802 -1.1 -0.027 (-3.2%)# -0.027 (-3.2%)# 07/16/2020 70 0.829 -0.9 -- *Denotes significance at 95% confidence level, LSC for AP Spine = 0.022 g/cm2, LSC for Total Hip = 0.027 g/cm2 # Denotes dissimilar scan types or analysis methods Impression: The patient has low bone mass, based on the Total Spine T-score. The patient has an estimated ten-year risk of hip fracture of 2.1% and an estimated ten-year risk of major fracture of 11%, based on the WHO FRAX algorithm. No significant bone loss was observed. Discussion: BONE DENSITY IS LOW AT ONE OR MORE SKELETAL SITES. This patient's lowest T-score is low at one or more skeletal sites. It meets the World Health Organization's (WHO) criteria for low bone mass (T-score between -1.0 and -2.5). The patient's 10-year risk of fracture as calculated by FRAX is less than the threshold where pharmacological therapy is recommended by the National Osteoporosis Foundation (NOF). However, all treatment decisions require clinical judgment and consideration of individual patient factors, including patient preferences, comorbidities, previous drug use, risk factors not captured in the FRAX model (e.g., frailty, falls, vitamin D deficiency, increased bone turnover, interval significant decline in bone density) and possible under or overestimation of fracture risk by FRAX. The patient should follow a healthful lifestyle (good nutrition with adequate calcium and vitamin D, and appropriate weight-bearing exercise). Follow-Up: Consider repeating this study in 2 to 3 years to reassess this patient's status, or sooner if there is some new clinical indication. Reported by: [facility] LILLY LEIJA M.D. on 03/08/2023 1:31:00 PM.
--- NOTE | 2023-03-08 12:44 | DI.US.S_ITS ---
PROCEDURE: US THYROID INDICATIONS: GOITER TECHNIQUE: Real-time scanning was performed of the thyroid gland, with image documentation. COMPARISON: None. FINDINGS: Right: Thyroid lobe measures 3.4 x 1.4 x 1.3 cm, and is somewhat heterogeneous in echotexture. Left: Thyroid lobe measures 3.4 x 1.5 x 1.1 cm, and is somewhat heterogeneous in echotexture. Isthmus: 0.2 cm thick. Nodule number: 1 Location: Left middle pole Size: 1.2 x 0.6 x 0.7 cm. Composition: 4 Echogenicity: Hypoechoic Shape: wider than tall. Margins: Smooth Echogenic foci: None Total points: 4 ACR TI-RADS category: Moderately suspicious Nodule number: 2 Location: Right upper pole Size: 0.6 x 0.5 x 0.8 cm. Composition: Solid Echogenicity: Hypoechoic Shape: Wider than tall Margins: Smooth Echogenic foci: None Total points: 4 ACR TI-RADS category: Moderately suspicious Nodule number: Right upper pole Location: Right upper pole Size: 0.6 x 0.5 x 0.6 cm Composition: Solid Echogenicity: Hypoechoic Shape: wider than tall. Margins: Ill-defined Echogenic foci: None Total points: 4 ACR TI-RADS category: Moderately suspicious IMPRESSION: Multinodular thyroid. None of the identified nodules are of imaging characteristics which indicate the need for ultrasound-guided FNA for tissue diagnosis. Based on the size of the largest nodule, follow-up ultrasound is recommended in 12 months. ACR TI-RADS definitions and recommendations: TI-RADS 1 (benign): 0 points. FNA not needed. TI-RADS 2 (not suspicious): 2 points. FNA not needed. TI-RADS 3 (mildly suspicious): 3 points. * FNA if 2.5 cm or larger, follow up if 1.5 cm or larger (at 1, 3, and 5 years). TI-RADS 4 (moderately suspicious): 4-6 points. * FNA if 1.5 cm or larger, follow up if 1 cm or larger (at 1, 2, 3, and 5 years). TI-RADS 5 (highly suspicious): 7 points or more. * FNA if 1 cm or larger, follow up if 0.5 cm or larger (every year for 5 years). Dictated by: Franck Rasheed M.D. on 03/08/2023 at 16:53 Approved by: Franck Rasheed M.D. on 03/08/2023 at 16:58
== END ==
PROVIDERS: PCP Family Medicine; Referring Provider Family Medicine; Visit Provider Family Medicine
DX: Z12.31 Encounter for screening mammogram for malignant neoplasm of breast (principal); R92.333 Mammographic heterogeneous density, bilateral breasts; Z13.820 Encounter for screening for osteoporosis; M85.88 Other specified disorders of bone density and structure, other site; Z78.0 Asymptomatic menopausal state; E04.2 Nontoxic multinodular goiter; Z86.39 Personal history of other endocrine, nutritional and metabolic disease
CPT/HCPCS: 76536; 77063; 77067; 77080

== ENCOUNTER → 2024-03-17 13:07 | Outpatient (CLI) | payer MEDICARE, OTHER, SELFPAY ==
--- NOTE | 2024-03-17 13:10 | DI.MG.S_ITS ---
BILATERAL DIGITAL SCREENING MAMMOGRAM 3D/2D WITH CAD: 03/17/2024 CLINICAL: Routine screening. Comparison is made to exams dated: 03/08/2023 mammogram, 10/20/2021 mammogram, and 07/16/2020 mammogram - [facility]. The breasts are heterogeneously dense, which may obscure small masses (category c / 51-75% glandular tissue). Current study was also evaluated with a Computer Aided Detection (CAD) system. No significant masses, calcifications, or other findings are seen in either breast. There has been no significant interval change. IMPRESSION: NEGATIVE There is no mammographic evidence of malignancy. A 1 year screening mammogram is recommended. Based on the Tyrer Cuzick model (a risk assessment model) the patient's lifetime risk is 6.4% and her 10 year risk is 5.2%. According to the ACR, ACS, and NCCN guidelines, an annual breast MRI exam along with mammogram is recommended if the patient's lifetime risk is 20% or greater. This exam was interpreted at Station ID: [id number]. NOTE: For mammograms, a report in lay terms will be sent to the patient. Approximately 15% of breast malignancies will not be visualized mammographically. In the management of a palpable breast mass, a negative mammogram must not discourage biopsy of a clinically suspicious lesion. Electronically Signed By: Reggie herrera/thompson:03/19/2024 07:35:04 letter sent: Normal Exam ACR BI-RADS Category 1: Negative
== END ==
PROVIDERS: PCP Family Medicine; Referring Provider Family Medicine; Visit Provider Family Medicine
DX: Z12.31 Encounter for screening mammogram for malignant neoplasm of breast (principal); R92.333 Mammographic heterogeneous density, bilateral breasts
CPT/HCPCS: 77063; 77067

== ENCOUNTER → 2024-03-26 11:31 | Outpatient (CLI) | payer MEDICARE, OTHER, SELFPAY ==
--- NOTE | 2024-03-26 11:38 | DI.US.S_ITS ---
PROCEDURE: US THYROID INDICATIONS: Follow-up imaging, multinodular thyroid TECHNIQUE: Real-time scanning was performed of the thyroid gland, with image documentation. COMPARISON: [facility], US, US THYROID, 03/08/2023, 13:32. FINDINGS: Thyroid: Right lobe measures 3.5 x 1.3 x 1.3 cm. Left lobe measures 3.4 x 1.3 x 1.4 cm. Isthmus is 0.2 cm thick. Echotexture is heterogeneous. Nodule number: 1 Location: Left mid thyroid gland Size: 1.1 x 0.6 x 0.7 cm, previously 1.2 x 0.6 x 0.7 cm Composition: Solid Echogenicity: Hypoechoic Shape: wider than tall. Margins: Smooth Echogenic foci: None Total points: 4 ACR TI-RADS category: Moderately suspicious IMPRESSION: Left thyroid gland 1.1 cm moderately suspicious nodule, not significantly changed since 03/08/2023. Recommend continued sonographic follow-up with repeat ultrasound in 12 months per ACR criteria below. ACR TI-RADS definitions and recommendations: TI-RADS 1 (benign): 0 points. FNA not needed. TI-RADS 2 (not suspicious): 2 points. FNA not needed. TI-RADS 3: 3 points. * FNA if 2.5 cm or larger, follow up if 1.5 cm or larger (at 1, 3, and 5 years). TI-RADS 4: 4-6 points. * FNA if 1.5 cm or larger, follow up if 1 cm or larger (at 1, 2, 3, and 5 years). TI-RADS 5: 7 points or more. * FNA if 1 cm or larger, follow up if 0.5 cm or larger (every year for 5 years). Approved by: Susana Singh M.D.,Ph.D. on 03/26/2024 at 14:10
[2024-03-26 12:25] LABS: Add Manual Diff / Slide Review NO; Basophils Absolute Auto 100 /uL (0-100); Basophils Percent Auto 0.9 % (0-2); Eosinophils Absolute Auto 100 /uL (0-450); Eosinophils Percent Auto 2.3 % (2-4); Hemoglobin 14.9 g/dL (12.0-16.0); Lymphocytes Absolute Auto 2100 /uL (1100-4500); Lymphocytes Percent Auto 35.8 % (25-40); Mean Corpuscular HGB Conc 33.9 % (30-36); Mean Corpuscular Hemoglobin 31.6 PG (26-34); Mean Corpuscular Volume 93.2 fL (80-100); Monocytes Absolute Auto 500 /uL (0-900); Monocytes Percent Auto 7.8 % (3-14); Neutrophils Absolute Auto 3100 /uL (1500-7000); Neutrophils Percent Auto 53.2 % (50-75); Platelet Count 230 X10^3/uL (150-400); Red Blood Cell Count 4.72 X10^6/uL (4.0-5.2); Red Cell Distribution Width 13.2 % (11.6-14.8); White Blood Cell Count 5.9 X10^3/uL (4.5-11.0)
[2024-03-26 12:42] LABS: Hemoglobin A1C% w Est Avg Glu 5.5 % (4.0-6.0)
[2024-03-26 12:55] LABS: Alanine Aminotransferase 27 IU/L (<35); Albumin 4.6 g/dL (3.5-5.0); Albumin Globulin Ratio 1.4 (1.0-2.8); Alkaline Phosphatase 87 U/L (38-126); Aspartate Aminotransferase 28 IU/L (14-36); BUN Creatinine Ratio 18.5 (6-22); Bilirubin Total 0.6 mg/dL (0.2-1.3); Blood Urea Nitrogen 15 mg/dL (7-17); Calcium 9.3 mg/dL (8.4-10.2); Carbon Dioxide 24 mmol/L (22-32); Chloride 107 mmol/L (98-107); Cholesterol 246 mg/dL (140-199); Estimated Glomerular Filt Rate > 60 mL/min (>60); Globulin 3.2 g/dL (1.7-4.1); Glucose 118 mg/dL (80-110); HDL Cholesterol 64 mg/dL (40-60); HEMOLYSIS < 15 (0-50); LDL Cholesterol Calculated 154 mg/dL (<100); Potassium 4.3 mmol/L (3.4-5.1); Sodium 140 mmol/L (137-145); Total Protein 7.8 g/dL (6.3-8.2); Triglycerides 141 mg/dL (35-150)
[2024-03-26 13:21] LABS: TSH w/ Reflex to FT4 0.62 uIU/mL (0.47-4.68)
== END ==
PROVIDERS: PCP Family Medicine; Referring Provider Family Medicine; Visit Provider Family Medicine
DX: E04.2 Nontoxic multinodular goiter (principal); R73.01 Impaired fasting glucose; I10 Essential (primary) hypertension; M79.7 Fibromyalgia; R68.2 Dry mouth, unspecified; H04.123 Dry eye syndrome of bilateral lacrimal glands
CPT/HCPCS: 36415; 76536; 80053; 80061; 83036; 84443; 85025